=== PATIENT | male | born 1955 | race Caucasian/White ===

== ENCOUNTER 2020-11-24 10:08 | Inpatient (IN) ==
[2020-11-24] MEDS ORDERED: Acetaminophen 325 MG TABLET PO PRN (13:11)
[2020-11-24] MEDS ORDERED: Ondansetron 4 MG/2 ML VIAL IVP PRN (13:11)
[2020-11-24] MEDS ORDERED: Naloxone 0.4 MG/ML INJ IVP PRN (13:11)
[2020-11-24 13:45] LABS: Hematocrit 33.7 % (37.5-50.1); Hemoglobin 10.8 g/dL (12.9-16.9); Immature Granulocytes % 0.4 % (0-4); Lymphocytes # 0.2 K/mcL (0.6-4.6); Lymphocytes % 2.2 %; Mean Corpuscular Hemoglobin 24.1 pg (28.0-33.3); Mean Corpuscular Volume 75.2 fL (83.0-100.0); Mean Platelet Volume 9.4 fL (9.4-12.4); Monocytes # 0.3 K/mcL (0.0-1.3); Monocytes % 2.7 %; Platelet Count 217 K/mcL (140-400); Red Blood Count 4.48 M/mcL (4.19-5.50); Red Cell Distribution Width 18.1 % (11.5-14.5); Segmented Neutrophils % 94.7 %; White Blood Count 9.5 K/mcL (4.3-11.1)
[2020-11-24 13:53] LABS: INR 1.2; Prothrombin Time 14.1 Seconds (9.4-12.1)
[2020-11-24 14:04] LABS: BUN/Creatinine Ratio 6 (6-26); Blood Urea Nitrogen 4 mg/dL (8-23); Calcium 8.3 mg/dL (8.6-10.3); Carbon Dioxide 34 mEq/L (23-29); Chloride 87 mEq/L (98-107); Glucose 185 mg/dL (70-105); Osmolality,Calculated 260 (280-300); Potassium 4.3 mEq/L (3.5-5.1); Sodium 124 mEq/L (136-145); eGFR For African Americans > 60 (> 60); eGFR For Non-African Americans > 60 (> 60)
[2020-11-24 14:05] LABS: Magnesium 1.6 mg/dL (1.6-2.6); Phosphorous 3.8 mg/dL (2.7-4.5)
[2020-11-24] MEDS: Dexmedetomidine HCl 400 MCG/100 ML MLS IVC SCH (15:41)
[2020-11-24 15:44] LABS: Bilirubin,Urine Negative (Negative); Blood,Urine Negative (Negative); Clarity,Urine Clear (Clear); Color,Urine Colorless (Yellow); Glucose,Urine (UA) 300 mg/dL (Normal); Ketones,Urine Trace mg/dL (Negative); Leukocyte Esterase,Urine Negative (Negative); Mucus,Urine Few per lpf (None-Few); Nitrite,Urine Negative (Negative); PH,Urine 6.5 pH Units (5.0-8.0); Protein,Urine Negative (Neg-Trace); RBC,Urine 0-3 per hpf (0-3); Specific Gravity,Urine 1.006 (1.010-1.025); Urobilinogen,Urine Normal (Normal); WBC,Urine 0-3 per hpf (0-3)
[2020-11-24 15:47] LABS: Potassium,Urine 9.2 mEq/L; Sodium, Urine 39.3 mEq/L
[2020-11-24 17:43] LABS: BUN/Creatinine Ratio 4 (6-26); Blood Urea Nitrogen 3 mg/dL (8-23); Calcium 8.7 mg/dL (8.6-10.3); Carbon Dioxide 36 mEq/L (23-29); Chloride 88 mEq/L (98-107); Glucose 171 mg/dL (70-105); Osmolality,Calculated 267 (280-300); Potassium 3.9 mEq/L (3.5-5.1); Sodium 128 mEq/L (136-145); eGFR For African Americans > 60 (> 60); eGFR For Non-African Americans > 60 (> 60)
[2020-11-24 17:43] LABS: VBG HCO3 37 mEq/L (21-27); VBG PCO2 78 mmHg (41-51); VBG PH 7.28 pH Units (7.32-7.42); VBG PO2 51 mmHg (25-50)
[2020-11-24] MEDS ORDERED: D5% in 0.2% NACL 500 ML IVC SCH (18:45)
[2020-11-24] MEDS ORDERED: D5% in 0.45% NACL 1,000 ML IVC SCH (18:45)
[2020-11-24 19:05] LABS: Troponin I < 0.03 ng/mL (< 0.04)
[2020-11-24 19:19] LABS: BUN/Creatinine Ratio 6 (6-26); Blood Urea Nitrogen 4 mg/dL (8-23); Calcium 8.6 mg/dL (8.6-10.3); Carbon Dioxide 35 mEq/L (23-29); Chloride 90 mEq/L (98-107); Glucose 146 mg/dL (70-105); Osmolality,Calculated 266 (280-300); Potassium 4.2 mEq/L (3.5-5.1); Sodium 128 mEq/L (136-145); eGFR For African Americans > 60 (> 60); eGFR For Non-African Americans > 60 (> 60)
[2020-11-24] MEDS ORDERED: Dextrose Gel 15 GM/37.5 ML TUBE PO PRN ×2 (19:34)
[2020-11-24] MEDS ORDERED: D5% in Water 1,000 ML IVC PRN (19:34)
[2020-11-24] MEDS: Ipratropium/Albuterol Neb 3 ML IH SCH ×2 (19:57→23:57)
[2020-11-24 21:19] LABS: BUN/Creatinine Ratio 5 (6-26); Blood Urea Nitrogen 3 mg/dL (8-23); Calcium 8.7 mg/dL (8.6-10.3); Carbon Dioxide 36 mEq/L (23-29); Chloride 89 mEq/L (98-107); Glucose 127 mg/dL (70-105); Osmolality,Calculated 264 (280-300); Potassium 3.9 mEq/L (3.5-5.1); Sodium 128 mEq/L (136-145); eGFR For African Americans > 60 (> 60); eGFR For Non-African Americans > 60 (> 60)
[2020-11-25] MEDS: Insulin LISPRO 300 UNITS/3 ML VIAL SUBQ SCH ×4 (01:31→18:05)
[2020-11-25 02:03] LABS: Basophils % 0.1 %; Hematocrit 32.9 % (37.5-50.1); Hemoglobin 10.8 g/dL (12.9-16.9); Immature Granulocytes % 0.3 % (0-4); Immature Platelets 7.6 % (1.1-6.1); Lymphocytes # 1.4 K/mcL (0.6-4.6); Lymphocytes % 14.5 %; Mean Corpuscular HGB Conc 32.8 g/dL (31.6-35.5); Mean Corpuscular Hemoglobin 24.5 pg (28.0-33.3); Mean Corpuscular Volume 74.8 fL (83.0-100.0); Mean Platelet Volume 10.1 fL (9.4-12.4); Monocytes # 1.7 K/mcL (0.0-1.3); Monocytes % 17.6 %; Neutrophils # 6.4 K/mcL (1.6-8.9); Platelet Count 197 K/mcL (140-400); Red Cell Distribution Width 18.1 % (11.5-14.5); Segmented Neutrophils % 67.5 %; White Blood Count 9.5 K/mcL (4.3-11.1)
[2020-11-25 02:22] LABS: BUN/Creatinine Ratio 7 (6-26); Blood Urea Nitrogen 4 mg/dL (8-23); Calcium 8.6 mg/dL (8.6-10.3); Carbon Dioxide 36 mEq/L (23-29); Chloride 90 mEq/L (98-107); Glucose 69 mg/dL (70-105); Osmolality,Calculated 263 (280-300); Potassium 3.8 mEq/L (3.5-5.1); Sodium 129 mEq/L (136-145); eGFR For African Americans > 60 (> 60); eGFR For Non-African Americans > 60 (> 60)
[2020-11-25 02:51] LABS: Folate > 22.3 ng/mL (3.0-16.0); Vitamin B12 562 pg/mL (250-1100)
[2020-11-25] MEDS: Ipratropium/Albuterol Neb 3 ML IH SCH ×5 (03:47→19:42)
[2020-11-25] MEDS: Dexmedetomidine HCl 400 MCG/100 ML MLS IVC SCH (05:41)
[2020-11-25] MEDS: *HR* Heparin 5,000 UNIT/ML VIAL SQ SCH ×2 (05:47→18:02)
[2020-11-25] MEDS: *HR* Dextrose 50 % in Water (Vial) 50 ML VIAL IVP PRN ×2 (05:55→08:42)
[2020-11-25 06:03] LABS: VBG HCO3 40 mEq/L (21-27); VBG PCO2 81 mmHg (41-51); VBG PO2 64 mmHg (25-50)
[2020-11-25 06:24] LABS: % Iron Saturation 3 % (20-55); Alanine Aminotransferase 15 Units/L (7-52); Albumin 3.8 g/dL (3.5-5.7); Albumin/Globulin Ratio 1.6 (1.1-2.2); Alkaline Phosphatase 71 Units/L (34-104); Aspartate Amino Transferase 18 Units/L (13-39); BUN/Creatinine Ratio 8 (6-26); Bilirubin,Direct 0.1 mg/dL (0.0-0.2); Bilirubin,Indirect 0.3 mg/dL (0.0-1.0); Bilirubin,Total 0.4 mg/dL (0.3-1.0); Blood Urea Nitrogen 5 mg/dL (8-23); Calcium 8.8 mg/dL (8.6-10.3); Carbon Dioxide 39 mEq/L (23-29); Chloride 88 mEq/L (98-107); Globulin 2.4 g/dL (2.4-3.5); Glucose 41 mg/dL (70-105); Iron 13 mcg/dL (65-175); Magnesium 1.8 mg/dL (1.6-2.6); Osmolality,Calculated 264 (280-300); Potassium 3.6 mEq/L (3.5-5.1); Sodium 130 mEq/L (136-145); Total Protein 6.2 g/dL (6.4-8.9); Transferrin 352 mg/dL (203-362); eGFR For African Americans > 60 (> 60); eGFR For Non-African Americans > 60 (> 60)
[2020-11-25 06:40] LABS: Ferritin 8 ng/mL (20-250)
[2020-11-25] MEDS: Iron Sucrose Complex 250 MG in 0.9 % Sodium Chloride 250 ML IVPB SCH (14:35)
[2020-11-26] MEDS: Ipratropium/Albuterol Neb 3 ML IH SCH ×7 (00:07→23:44)
[2020-11-26] MEDS: Insulin LISPRO 300 UNITS/3 ML VIAL SUBQ SCH ×5 (01:29→23:45)
[2020-11-26] MEDS: *HR* Heparin 5,000 UNIT/ML VIAL SQ SCH ×2 (06:34→17:18)
[2020-11-26] MEDS: RisperiDAL 3 MG TABLET PO SCH ×2 (07:44→17:20)
[2020-11-26] MEDS: Aspirin Enteric Coated 81 MG Tablet PO SCH (07:44)
[2020-11-26] MEDS: lisinopriL 10 MG TABLET PO SCH (07:44)
[2020-11-26] MEDS: Iron Sucrose Complex 250 MG in 0.9 % Sodium Chloride 250 ML IVPB SCH (07:45)
[2020-11-26] MEDS: Multivit/Ca/Min/Fe/FA 1 TAB TABLET PO SCH (17:17)
[2020-11-26] MEDS: Dexmedetomidine HCl 400 MCG/100 ML MLS IVC SCH (19:37)
[2020-11-26] MEDS: carvediloL 6.25 MG TABLET PO SCH (19:45)
[2020-11-27] MEDS: Dexmedetomidine HCl 400 MCG/100 ML MLS IVC SCH (00:09)
[2020-11-27] MEDS: Ipratropium/Albuterol Neb 3 ML IH SCH ×5 (03:38→20:08)
[2020-11-27] MEDS: Insulin LISPRO 300 UNITS/3 ML VIAL SUBQ SCH ×2 (05:28→11:54)
[2020-11-27] MEDS: *HR* Heparin 5,000 UNIT/ML VIAL SQ SCH ×2 (05:28→18:43)
[2020-11-27] MEDS: Aspirin Enteric Coated 81 MG Tablet PO SCH (07:39)
[2020-11-27] MEDS: lisinopriL 10 MG TABLET PO SCH (07:39)
[2020-11-27] MEDS: RisperiDAL 3 MG TABLET PO SCH (07:45)
[2020-11-27] MEDS: carvediloL 6.25 MG TABLET PO SCH ×2 (07:45→18:43)
[2020-11-27 08:48] LABS: VBG HCO3 33 mEq/L (21-27); VBG PCO2 57 mmHg (41-51); VBG PH 7.38 pH Units (7.32-7.42); VBG PO2 104 mmHg (25-50)
[2020-11-27] MEDS: Iron Sucrose Complex 250 MG in 0.9 % Sodium Chloride 250 ML IVPB SCH (09:02)
[2020-11-27 09:05] LABS: BUN/Creatinine Ratio 9 (6-26); Blood Urea Nitrogen 7 mg/dL (8-23); Calcium 9.1 mg/dL (8.6-10.3); Carbon Dioxide 31 mEq/L (23-29); Chloride 86 mEq/L (98-107); Glucose 163 mg/dL (70-105); Osmolality,Calculated 262 (280-300); Potassium 3.7 mEq/L (3.5-5.1); Sodium 125 mEq/L (136-145); eGFR For African Americans > 60 (> 60); eGFR For Non-African Americans > 60 (> 60)
[2020-11-27 09:27] LABS: Magnesium 1.6 mg/dL (1.6-2.6)
[2020-11-27 11:41] LABS: Basophils # 0.1 K/mcL (0.0-0.2); Basophils % 0.5 %; Hematocrit 34.8 % (37.5-50.1); Hemoglobin 11.5 g/dL (12.9-16.9); Immature Granulocytes % 0.5 % (0-4); Lymphocytes # 1.1 K/mcL (0.6-4.6); Lymphocytes % 6.4 %; Mean Corpuscular Hemoglobin 24.3 pg (28.0-33.3); Mean Corpuscular Volume 73.6 fL (83.0-100.0); Mean Platelet Volume 9.4 fL (9.4-12.4); Monocytes # 1.8 K/mcL (0.0-1.3); Monocytes % 10.9 %; Neutrophils # 13.5 K/mcL (1.6-8.9); Platelet Count 243 K/mcL (140-400); Red Blood Count 4.73 M/mcL (4.19-5.50); Red Cell Distribution Width 17.5 % (11.5-14.5); Segmented Neutrophils % 81.7 %
[2020-11-27 11:43] LABS: White Blood Count 16.5 K/mcL (4.3-11.1)
[2020-11-27] MEDS: predniSONE 20 MG TABLET PO SCH (11:53)
[2020-11-27 12:29] LABS: Estimated Average Glucose 143 mg/dl; Hemoglobin A1C 6.6 %
[2020-11-27] MEDS: Multivit/Ca/Min/Fe/FA 1 TAB TABLET PO SCH (18:43)
[2020-11-27] MEDS ORDERED: Insulin DETEMIR 100 UNIT/ML X5UNITS SUBQ SCH ×2 (21:00)
[2020-11-27] MEDS ORDERED: Insulin LISPRO 300 UNITS/3 ML VIAL SUBQ SCH (21:00)
[2020-11-28] MEDS: Ipratropium/Albuterol Neb 3 ML IH SCH ×5 (00:02→15:40)
[2020-11-28] MEDS: Dexmedetomidine HCl 400 MCG/100 ML MLS IVC SCH (04:15)
[2020-11-28 05:34] LABS: Hematocrit 31.9 % (37.5-50.1); Hemoglobin 10.9 g/dL (12.9-16.9); Mean Corpuscular HGB Conc 34.2 g/dL (31.6-35.5); Mean Corpuscular Hemoglobin 24.8 pg (28.0-33.3); Mean Corpuscular Volume 72.7 fL (83.0-100.0); Mean Platelet Volume 9.4 fL (9.4-12.4); Platelet Count 251 K/mcL (140-400); Red Blood Count 4.39 M/mcL (4.19-5.50); Red Cell Distribution Width 17.2 % (11.5-14.5); White Blood Count 11.2 K/mcL (4.3-11.1)
[2020-11-28 05:41] LABS: BUN/Creatinine Ratio 15 (6-26); Blood Urea Nitrogen 10 mg/dL (8-23); Carbon Dioxide 33 mEq/L (23-29); Chloride 91 mEq/L (98-107); Glucose 124 mg/dL (70-105); Osmolality,Calculated 268 (280-300); Potassium 3.8 mEq/L (3.5-5.1); Sodium 129 mEq/L (136-145); eGFR For African Americans > 60 (> 60); eGFR For Non-African Americans > 60 (> 60)
[2020-11-28] MEDS: lisinopriL 10 MG TABLET PO SCH (06:08)
[2020-11-28] MEDS: *HR* Heparin 5,000 UNIT/ML VIAL SQ SCH (06:08)
[2020-11-28] MEDS: Aspirin Enteric Coated 81 MG Tablet PO SCH (06:09)
[2020-11-28] MEDS ORDERED: RisperiDAL 3 MG TABLET PO SCH ×2 (07:00→17:00)
[2020-11-28] MEDS: Insulin LISPRO 300 UNITS/3 ML VIAL SUBQ SCH ×2 (07:21→12:41)
[2020-11-28] MEDS: predniSONE 20 MG TABLET PO SCH (08:41)
[2020-11-28] MEDS: carvediloL 6.25 MG TABLET PO SCH (08:42)
[2020-11-28 11:29] VITALS: BP 126/51; PULSE 81; TEMP 98.2
[2020-11-28] MEDS: Multivit/Ca/Min/Fe/FA 1 TAB TABLET PO SCH (17:42)
[2020-11-28 17:49] VITALS: O2SAT 93
== END 2020-11-28 18:02 | DRG 643 ==
LOC: 2NNU → SUATTDRO 12:19 → CDU 11-27 15:02
PROVIDERS: ADMIT Pharmacist; ATTEND Internal Medicine